=== PATIENT | male | born 1945 ===

== ENCOUNTER 2022-08-05 05:47 | Day surgery (SDC) | payer OTHER ==
[~2022-08-05] VITALS: Ht 172.7 cm; Wt 90.7 kg
[~2022-08-05 05:47] MED LIST: COZAAR100 MG PO
[2022-08-05] MEDS ORDERED: RECTICARE30 GM TOP (08:28)
[2022-08-05] MEDS ORDERED: PERCOCET 5-3251 EACH PO (08:28)
== END 2022-08-05 14:00 | disposition home or self-care (01) ==
LOC: CIR.AMB 05:47
PROVIDERS: ATTEND Surgery
DX: C21.8 Malignant neoplasm of overlapping sites of rectum, anus and anal canal (principal); R19.4 Change in bowel habit; R19.5 Other fecal abnormalities; K64.2 Third degree hemorrhoids; I10 Essential (primary) hypertension; R73.03 Prediabetes; Z20.822 Contact with and (suspected) exposure to COVID-19